=== PATIENT | male | born 1950 | race Two or more races ===

== ENCOUNTER 2023-06-09 12:47 | Inpatient (IN) | payer MEDICARE, MEDICAID ==
[~2023-06-09] VITALS: Ht 185.4 cm; Wt 86.7 kg
[2023-06-09] MEDS ORDERED: SODIUM CHLORIDE 0.9% 500 ML IV ONE (13:30)
[2023-06-09 13:56] LABS: Basophils # (auto) 0.1 10 ^3/uL (0-0.2); Basophils % (auto) 1.1 % (0.0-2.0); Eosinophils # (auto) 0 10 ^3/uL (0-0.8); Eosinophils % (auto) 0.1 % (0.0-7.0); Hematocrit 44.1 % (41.0-53.0); Hemoglobin 14.8 g/dL (13.5-17.5); Lymphocytes # (auto) 0.6 10 ^3/uL (0.4-5.4); Lymphocytes % (auto) 9.8 % (10.0-50.0); Mean Corpuscular Hemoglobin 27.5 pg (28.0-32.0); Mean Corpuscular Hgb Conc. 33.5 g/dL (32.0-36.0); Monocytes # (auto) 0.5 10 ^3/uL (0-1.3); Monocytes % (auto) 9.2 % (0.0-12.0); Neutrophils # (auto) 4.7 10 ^3/uL (1.6-8.6); Neutrophils % (auto) 79.8 % (37.0-80.0); Red Blood Cells 5.38 10^6/uL (4.5-5.90); Red Cell Distribution Width 13.9 % (11.8-14.3); White Blood Cell 5.9 10^3/uL (4.4-10.8)
[2023-06-09 14:00] LABS: INR 1.14 (0.9-1.15); Partial Thromboplastin Time 30.3 SEC (24.5-34.5); Prothrombin Time 11.9 sec (9.3-11.8)
[2023-06-09 14:07] LABS: Alanine Aminotransferase 16 U/L (7-40); Albumin 4.3 g/dL (3.2-4.8); Alkaline Phosphatase 67 U/L (46-116); Anion Gap 12 (5-15); Aspartate Aminotransferase 12 U/L (13-40); BUN/Creatinine Ratio 9.6 (10.0-20.0); Blood Urea Nitrogen 11 mg/dL (9-23); Calcium 9.1 mg/dL (8.5-10.1); Carbon Dioxide 20 mmol/L (20-30); Chloride 107 mmol/L (98-107); Glucose 152 mg/dL (74-106); Potassium 3.7 mmol/L (3.5-5.1); Sodium 139 mmol/L (136-145)
[2023-06-09 14:08] LABS: Bilirubin, Total 2.1 mg/dL (0.2-1.0); Total Protein 7.2 g/dL (5.7-8.2)
[2023-06-09 15:03] LABS: Magnesium 1.6 mg/dL (1.6-2.6)
[2023-06-09] MEDS ORDERED: hydrALAZINE HCL 20 MG/ML VL IV ONE (15:45)
[2023-06-09] MEDS ORDERED: ATOR20TA50 PO (17:10)
[2023-06-09] MEDS ORDERED: EMPA1TAB PO (17:10)
[2023-06-09] MEDS ORDERED: METF-372 PO (17:10)
[2023-06-09] MEDS ORDERED: TRIA37.587 PO (17:10)
[2023-06-09] MEDS ORDERED: LISI-275 PO (17:10)
[2023-06-09] MEDS ORDERED: ASPI-325 PO (17:10)
[2023-06-09] MEDS ORDERED: DOCUSATE SOD 100 MG CAP PO PRN (17:15)
[2023-06-09] MEDS ORDERED: ACETAMINOPHEN 325 MG TAB PO PRN (17:15)
[2023-06-09] MEDS ORDERED: NITROGLYCERIN 0.4 MG SL TAB SL PRN (17:15)
[2023-06-09] MEDS ORDERED: MORPHINE SULFATE INJ 2 MG/ml SYRG IV PRN (17:15)
[2023-06-09] MEDS ORDERED: DEXTROSE (50%) 50ML SYRG IV PRN (17:15)
[2023-06-09 17:50] LABS: Urine Bacteria NONE SEEN /hpf (None Seen); Urine Blood Negative /uL (Negative); Urine Clarity Clear (Clear); Urine Color Yellow (Yellow); Urine Mucus FEW (None Seen); Urine Protein, UAD 3+ (Negative); Urine Specific Gravity 1.023 (1.001-1.035); Urine WBC 1 /hpf (0 - 3)
[2023-06-09] MEDS: ACCU-CHEK COMFORT CURVE STRIP VI SCH (23:09)
[2023-06-10 01:00] VITALS: PULSE 62; RESP 24; O2SAT 96
[2023-06-10] MEDS: ACCU-CHEK COMFORT CURVE STRIP VI SCH ×6 (01:08→22:33)
[2023-06-10] MEDS: InsuLIN REG 1unit/0.01ml Soln (100units/ml) SC SCH ×5 (02:08→22:33)
[2023-06-10 03:36] LABS: Urine Bacteria NONE SEEN /hpf (None Seen); Urine Blood Negative /uL (Negative); Urine Clarity Clear (Clear); Urine Color Yellow (Yellow); Urine Hyaline Cast FEW /lpf (0 - 2); Urine Protein, UAD 3+ (Negative); Urine Specific Gravity 1.012 (1.001-1.035); Urine WBC 1 /hpf (0 - 3); Urine pH 6.5 (5.0-8.0)
[2023-06-10 05:27] LABS: Basophils # (auto) 0 10 ^3/uL (0-0.2); Eosinophils # (auto) 0 10 ^3/uL (0-0.8); Eosinophils % (auto) 0.2 % (0.0-7.0); Hematocrit 46.3 % (41.0-53.0); Hemoglobin 15.4 g/dL (13.5-17.5); Lymphocytes # (auto) 0.7 10 ^3/uL (0.4-5.4); Lymphocytes % (auto) 17.2 % (10.0-50.0); Mean Corpuscular Hemoglobin 27.4 pg (28.0-32.0); Mean Corpuscular Hgb Conc. 33.2 g/dL (32.0-36.0); Mean Corpuscular Volume 82.5 fL (80.0-100.0); Monocytes # (auto) 0.6 10 ^3/uL (0-1.3); Monocytes % (auto) 15.8 % (0.0-12.0); Neutrophils # (auto) 2.7 10 ^3/uL (1.6-8.6); Neutrophils % (auto) 65.8 % (37.0-80.0); Nucleated Red Blood Cells % 0.5 %; Red Blood Cells 5.61 10^6/uL (4.5-5.90); Red Cell Distribution Width 13.8 % (11.8-14.3)
[2023-06-10 05:39] LABS: Alanine Aminotransferase 12 U/L (7-40); Albumin 4.1 g/dL (3.2-4.8); Alkaline Phosphatase 60 U/L (46-116); Anion Gap 12 (5-15); Aspartate Aminotransferase 16 U/L (13-40); BUN/Creatinine Ratio 8.7 (10.0-20.0); Blood Urea Nitrogen 9 mg/dL (9-23); Calcium 8.8 mg/dL (8.5-10.1); Carbon Dioxide 20 mmol/L (20-30); Chloride 106 mmol/L (98-107); Glucose 151 mg/dL (74-106); LDL Cholesterol 93 mg/dL (< 100); Potassium 3.2 mmol/L (3.5-5.1); Sodium 138 mmol/L (136-145); Triglycerides 86 mg/dL (< 150)
[2023-06-10 05:40] LABS: Bilirubin, Total 1.8 mg/dL (0.2-1.0); Cholesterol 145 mg/dL (< 200); HDL Cholesterol 38 mg/dL (40-59); Total Protein 7.4 g/dL (5.7-8.2)
[2023-06-10] MEDS ORDERED: LORazepam 2MG/ML-1ML VIAL ONE (07:39)
[2023-06-10] MEDS: LORazepam 2MG/ML-1ML VIAL IV PRN ×2 (07:45→17:07)
[2023-06-10 08:00] VITALS: PULSE 61; RESP 22; O2SAT 95
[2023-06-10] MEDS ORDERED: ATORVASTATIN 20 MG TAB PO SCH (10:00)
[2023-06-10] MEDS ORDERED: ENOXAPARIN SOD 40 MG/0.4 ML SYRINGE SC SCH (10:00)
[2023-06-10] MEDS ORDERED: POTASSIUM CHL 20 Meq TABLET PO ONE (10:15)
[2023-06-10] MEDS ORDERED: FUROSEMIDE 40 MG/4 ML VIAL IV ONE (10:15)
[2023-06-10] MEDS ORDERED: MAGNESIUM SULFATE 1GM/100ML 100 ML IV ONE (10:15)
[2023-06-10] MEDS ORDERED: ADENOSINE 80 MG in GIVE UN-DILUTED 0 ML IV ONE (11:30)
[2023-06-10] MEDS: TRIAMTERENE/HCTZ 37.5/25 MG CAP/TAB PO SCH (12:05)
[2023-06-10] MEDS: ASPirin-EC 81 mg tab PO SCH (12:05)
[2023-06-10] MEDS: LISINOPRIL 5 MG TAB PO SCH (12:05)
[2023-06-10] MEDS: FUROSEMIDE 20 MG/2 ML VIAL IV SCH (18:50)
[2023-06-10 19:30] VITALS: PULSE 84; RESP 14; O2SAT 95
[2023-06-10] MEDS: ATORVASTATIN 20 MG TAB PO SCH (22:50)
[2023-06-11] MEDS: FUROSEMIDE 20 MG/2 ML VIAL IV SCH ×2 (06:00→18:00)
[2023-06-11] MEDS: ACCU-CHEK COMFORT CURVE STRIP VI SCH ×4 (06:37→22:00)
[2023-06-11] MEDS: InsuLIN REG 1unit/0.01ml Soln (100units/ml) SC SCH ×4 (06:55→22:00)
[2023-06-11] MEDS: LISINOPRIL 5 MG TAB PO SCH (08:24)
[2023-06-11] MEDS: TRIAMTERENE/HCTZ 37.5/25 MG CAP/TAB PO SCH (08:24)
[2023-06-11] MEDS: ASPirin-EC 81 mg tab PO SCH (08:24)
[2023-06-11] MEDS ORDERED: POTASSIUM CHL 20 Meq TABLET PO ONE (10:30)
[2023-06-11] MEDS: LORazepam 2MG/ML-1ML VIAL IV PRN (15:22)
[2023-06-11 19:30] VITALS: PULSE 76; RESP 20; O2SAT 97
[2023-06-11] MEDS ORDERED: LIDOCAINE 1% HCL (LOCAL ANESTH.) INJ 20ML MDV ONE (19:48)
[2023-06-11] MEDS ORDERED: LIDOCAINE 2%HCL (LOCAL ANESTH.) INJ 20ML MDV ONE (19:48)
[2023-06-11] MEDS ORDERED: IODIXANOL 320MG/ML 100ML BTL IV ONE ×3 (19:48→22:20)
[2023-06-11] MEDS ORDERED: ANGIOMAX 250 MG VIAL IV ONE ×2 (19:59→21:57)
[2023-06-11] MEDS ORDERED: VERAPAMIL 2.5MG/ML INJ 2ML VIAL IV ONE (19:59)
[2023-06-11] MEDS ORDERED: MIDAZOLAM HCL 2MG/2ML 2ml VIAL (1mg/ml) ONE ×4 (20:00→22:40)
[2023-06-11] MEDS ORDERED: fentaNYL CITRATE 100 MCG/2 ML VL ONE (20:00)
[2023-06-11] MEDS ORDERED: SODIUM CHL 0.9% 50 ML ONE ×2 (20:01→21:58)
[2023-06-11] MEDS ORDERED: ATROPINE SULF 1 MG/10ml SYR ONE (21:17)
[2023-06-11] MEDS: ATORVASTATIN 20 MG TAB PO SCH (22:00)
[2023-06-11] MEDS ORDERED: TICAGRELOR 90 MG TAB ONE (22:08)
[2023-06-11] MEDS ORDERED: HYDROmorphone HCL 2 MG/ML VL/or syr ONE (22:45)
[2023-06-11 23:00] VITALS: BP 151/82; PULSE 71; RESP 19; TEMP 98; O2SAT 95
[2023-06-11] MEDS ORDERED: hydrALAZINE HCL 20 MG/ML VL ONE (23:02)
[2023-06-11 23:15] VITALS: BP 128/65; PULSE 70; RESP 18; O2SAT 95
[2023-06-11 23:30] VITALS: BP 132/63; PULSE 70; RESP 15; O2SAT 97
[2023-06-11 23:47] VITALS: BP 127/64; PULSE 69; RESP 15; O2SAT 98
[2023-06-12] VITALS (8 sets, daily range): BP systolic 130–186; BP diastolic 61–101; PULSE 49–78; RESP 14–22; TEMP 97.3–98.2; O2SAT 97–100
[2023-06-12] MEDS: FUROSEMIDE 20 MG/2 ML VIAL IV SCH ×2 (06:58→17:52)
[2023-06-12] MEDS: ACCU-CHEK COMFORT CURVE STRIP VI SCH ×4 (07:01→21:35)
[2023-06-12] MEDS: InsuLIN REG 1unit/0.01ml Soln (100units/ml) SC SCH ×4 (07:05→21:40)
[2023-06-12 10:51] LABS: Chloride 102 mmol/L (98-107); Potassium 4.4 mmol/L (3.5-5.1); Sodium 134 mmol/L (136-145)
[2023-06-12 10:52] LABS: Anion Gap 9 (5-15); Calcium 9.6 mg/dL (8.5-10.1); Carbon Dioxide 23 mmol/L (20-30)
[2023-06-12 10:57] LABS: BUN/Creatinine Ratio 10.1 (10.0-20.0); Blood Urea Nitrogen 12 mg/dL (9-23); Glucose 164 mg/dL (74-106)
[2023-06-12] MEDS: LISINOPRIL 10 MG TAB PO SCH (11:03)
[2023-06-12] MEDS: TICAGRELOR 90 MG TAB PO SCH ×2 (11:04→21:31)
[2023-06-12] MEDS: ASPirin 81 mg TAB PO SCH (11:04)
[2023-06-12] MEDS: TRIAMTERENE/HCTZ 37.5/25 MG CAP/TAB PO SCH (11:04)
[2023-06-12] MEDS ORDERED: FOLIC ACID 1 MG, MULTIPLE VITAMIN 10 ML, MAGNESIUM SULF SDV 50% 8 MEQ, THIAMINE INJ 100... INJ SCH ×5 (12:00)
[2023-06-12] MEDS ORDERED: chlordiazePOXIDE HCL 25 MG CAP PO ONE (16:00)
[2023-06-12] MEDS ORDERED: LORazepam 2MG/ML-1ML VIAL IV PRN (18:15)
[2023-06-12] MEDS ORDERED: HALOPERIDOL LACTATE 5 MG/ML INJ VIAL IM PRN (18:15)
[2023-06-12] MEDS: chlordiazePOXIDE HCL 25 MG CAP PO SCH (21:31)
[2023-06-12] MEDS: ATORVASTATIN 20 MG TAB PO SCH (21:32)
[2023-06-13 05:00] VITALS: BP 135/60; PULSE 54; RESP 18; TEMP 97.5; O2SAT 99
[2023-06-13] MEDS: chlordiazePOXIDE HCL 25 MG CAP PO SCH ×4 (06:21→21:10)
[2023-06-13] MEDS: FUROSEMIDE 20 MG TAB PO SCH ×2 (06:21→18:00)
[2023-06-13] MEDS: ACCU-CHEK COMFORT CURVE STRIP VI SCH ×4 (06:30→21:20)
[2023-06-13] MEDS: InsuLIN REG 1unit/0.01ml Soln (100units/ml) SC SCH ×4 (06:30→21:21)
[2023-06-13 08:00] VITALS: PULSE 45
[2023-06-13 09:00] VITALS: BP 107/66; PULSE 54; RESP 20; TEMP 98; O2SAT 98
[2023-06-13 11:23] LABS: Folate (Folic Acid) 14.56 ng/mL (>5.38)
[2023-06-13] MEDS: LISINOPRIL 10 MG TAB PO SCH (11:35)
[2023-06-13] MEDS: ASPirin 81 mg TAB PO SCH (11:36)
[2023-06-13] MEDS: TICAGRELOR 90 MG TAB PO SCH ×2 (11:36→21:10)
[2023-06-13] MEDS: TRIAMTERENE/HCTZ 37.5/25 MG CAP/TAB PO SCH (11:37)
[2023-06-13 13:00] VITALS: BP 115/71; PULSE 69; RESP 20; TEMP 98.1; O2SAT 94
[2023-06-13] MEDS ORDERED: OLANZapine 5 MG TAB PO PRN (15:00)
[2023-06-13 17:00] VITALS: BP 146/93; PULSE 112; RESP 22; TEMP 97.4; O2SAT 95
[2023-06-13] MEDS ORDERED: HALOPERIDOL LACTATE 5 MG/ML INJ VIAL IM PRN (19:15)
[2023-06-13 20:00] VITALS: PULSE 64; RESP 19
[2023-06-13] MEDS: ATORVASTATIN 20 MG TAB PO SCH (21:10)
[2023-06-14 04:41] VITALS: BP 145/53; PULSE 44; RESP 17; TEMP 97.5; O2SAT 99
[2023-06-14] MEDS: FUROSEMIDE 20 MG TAB PO SCH ×2 (06:12→18:00)
[2023-06-14] MEDS: ACCU-CHEK COMFORT CURVE STRIP VI SCH ×4 (06:12→22:24)
[2023-06-14] MEDS: chlordiazePOXIDE HCL 25 MG CAP PO SCH ×3 (06:12→22:12)
[2023-06-14] MEDS: InsuLIN REG 1unit/0.01ml Soln (100units/ml) SC SCH ×4 (06:13→22:24)
[2023-06-14 08:00] VITALS: BP 142/107; PULSE 43; PULSE 77; RESP 19; TEMP 97.9; O2SAT 98
[2023-06-14] MEDS: ASPirin 81 mg TAB PO SCH (10:15)
[2023-06-14] MEDS: TRIAMTERENE/HCTZ 37.5/25 MG CAP/TAB PO SCH (10:15)
[2023-06-14] MEDS: TICAGRELOR 90 MG TAB PO SCH ×2 (10:16→22:12)
[2023-06-14] MEDS: LISINOPRIL 10 MG TAB PO SCH (10:16)
[2023-06-14] MEDS: OLANZapine 5 MG TAB PO SCH ×3 (10:36→22:12)
[2023-06-14 12:35] LABS: COVID19 ANTIGEN SOFIA FIA NEGATIVE (NEGATIVE)
[2023-06-14 17:17] VITALS: BP 142/107; PULSE 77; RESP 19; TEMP 97.9; O2SAT 98
[2023-06-14] MEDS: ATORVASTATIN 20 MG TAB PO SCH (22:11)
== END 2023-06-14 22:40 | DRG 321 ==
LOC: ER 12:47 → TELE 17:09 → TELE-EAST 22:30
PROVIDERS: ADMIT Nurse Practitioner Family; ATTEND Family Medicine
PROC: 027035Z Dilation of Coronary Artery, One Artery with Two Drug-eluting Intraluminal Devices, Percutaneous Approach (ICD-10-PCS; principal; 2023-06-11)
PROC: 4A023N7 Measurement of Cardiac Sampling and Pressure, Left Heart, Percutaneous Approach (ICD-10-PCS; 2023-06-11)
PROC: B211YZZ Fluoroscopy of Multiple Coronary Arteries using Other Contrast (ICD-10-PCS; 2023-06-11)
PROC: 04HK33Z Insertion of Infusion Device into Right Femoral Artery, Percutaneous Approach (ICD-10-PCS; 2023-06-11)
DX: I25.110 Atherosclerotic heart disease of native coronary artery with unstable angina pectoris (principal); I50.31 Acute diastolic (congestive) heart failure; I24.9 Acute ischemic heart disease, unspecified; E78.5 Hyperlipidemia, unspecified; I11.0 Hypertensive heart disease with heart failure; E66.9 Obesity, unspecified; I44.1 Atrioventricular block, second degree; F17.200 Nicotine dependence, unspecified, uncomplicated; F10.10 Alcohol abuse, uncomplicated; E11.9 Type 2 diabetes mellitus without complications; Z91.199 Patient's noncompliance with other medical treatment and regimen due to unspecified reason; Z90.49 Acquired absence of other specified parts of digestive tract; Z68.25 Body mass index [BMI] 25.0-25.9, adult; Z82.0 Family history of epilepsy and other diseases of the nervous system; Z82.49 Family history of ischemic heart disease and other diseases of the circulatory system; Z83.3 Family history of diabetes mellitus
CPT/HCPCS: 36415; 70450; 71046; 78452; 80048; 80053; 80061; 81001; 82010; 82607; 82746; 82962; 83036; 83735; 83880; 84443; 84484; 85025; 85610; 85730; 87426; 92928; 93005; 93017; 93306; 93458; 95819; 97110; 97116; 97163; 97530; 99152; 99153; C1874; G0378; J0153; J1815; J2001; J2250; Q9967

== ENCOUNTER 2023-06-20 01:32 | Emergency (ER) | payer MEDICARE, MEDICAID ==
[~2023-06-20] VITALS: Ht 185.4 cm; Wt 97.5 kg
[~2023-06-20 01:32] MED LIST: ASPI-325 PO; ATOR20TA50 PO; EMPA1TAB PO; LISI-275 PO; METF-372 PO; TRIA37.587 PO
[2023-06-20 01:59] VITALS: PULSE 85; RESP 20; O2SAT 98
[2023-06-20 02:14] VITALS: TEMP 97.3
[2023-06-20 02:28] LABS: Basophils # (auto) 0 10 ^3/uL (0-0.2); Monocytes # (auto) 0.7 10 ^3/uL (0-1.3); Nucleated Red Blood Cells % 0.2 %
[2023-06-20 02:29] LABS: Basophils % (auto) 0.4 % (0.0-2.0); Eosinophils # (auto) 0.1 10 ^3/uL (0-0.8); Eosinophils % (auto) 0.6 % (0.0-7.0); Hematocrit 53.3 % (41.0-53.0); Hemoglobin 17.8 g/dL (13.5-17.5); Lymphocytes # (auto) 1.1 10 ^3/uL (0.4-5.4); Lymphocytes % (auto) 12.1 % (10.0-50.0); Mean Corpuscular Hemoglobin 27.7 pg (28.0-32.0); Mean Corpuscular Hgb Conc. 33.4 g/dL (32.0-36.0); Mean Corpuscular Volume 82.9 fL (80.0-100.0); Neutrophils # (auto) 7.5 10 ^3/uL (1.6-8.6); Neutrophils % (auto) 79.9 % (37.0-80.0); Red Blood Cells 6.44 10^6/uL (4.5-5.90); Red Cell Distribution Width 13.8 % (11.8-14.3); White Blood Cell 9.4 10^3/uL (4.4-10.8)
[2023-06-20 02:43] LABS: Alanine Aminotransferase 32 U/L (7-40); Alkaline Phosphatase 103 U/L (46-116); Anion Gap 11 (5-15); BUN/Creatinine Ratio 25.4 (10.0-20.0); Blood Urea Nitrogen 47 mg/dL (9-23); Carbon Dioxide 22 mmol/L (20-30); Chloride 101 mmol/L (98-107); Glucose 201 mg/dL (74-106); Lipase 97 U/L (12-53); Potassium 4.4 mmol/L (3.5-5.1); Sodium 134 mmol/L (136-145)
[2023-06-20 02:44] LABS: Albumin 4.9 g/dL (3.2-4.8); Aspartate Aminotransferase 25 U/L (13-40); Bilirubin, Total 0.7 mg/dL (0.2-1.0); Total Protein 9.3 g/dL (5.7-8.2)
[2023-06-20] MEDS ORDERED: ZOFR4T PO (04:51)
[2023-06-20 05:41] VITALS: BP 127/77; PULSE 94; RESP 19; O2SAT 100
== END 2023-06-20 05:54 | disposition home or self-care (01) ==
LOC: ER 01:32 → EDBD 01:32 → ER 05:47
DX: R11.2 Nausea with vomiting, unspecified (principal); I10 Essential (primary) hypertension; E11.9 Type 2 diabetes mellitus without complications; Z90.49 Acquired absence of other specified parts of digestive tract; Z87.891 Personal history of nicotine dependence; Z79.82 Long term (current) use of aspirin; Z79.899 Other long term (current) drug therapy
CPT/HCPCS: 36415; 71045; 74176; 80053; 82962; 83690; 83880; 84484; 85025; 93005